=== PATIENT | male | born 1945 | race Caucasian/White ===

== ENCOUNTER 2020-07-24 06:11 | Observation (INO) ==
--- NOTE | 2020-07-13 16:48 | PAT Medication Instructions ---
Medication Instructions Date of Service July 13, 2020 Home Medications oxybutynin chloride 5 mg tablet 5 mg PO DAILY PRN antiarthritic combination no.2 [glucosamine-chondroitin] 900 mg PO QPM ascorbic acid (vitamin C) 1 g PO QPM cetirizine [Zyrtec] 10 mg PO QAM multivitamin 1 tab PO QPM omega-3 fatty acids [Fish Oil Concentrate] 1,000 mg PO QPM selenium 200 mcg PO QPM simvastatin 20 mg PO QAM vitamin E 600 unit PO QPM STOP taking 2 weeks before surgery If surgery is within 2 weeks, stop taking as soon as possible. antiarthritic combination no.2 [glucosamine-chondroitin] 900 mg PO QPM omega-3 fatty acids [Fish Oil Concentrate] 1,000 mg PO QPM selenium 200 mcg PO QPM vitamin E 600 unit PO QPM DO NOT take the morning of surgery oxybutynin chloride 5 mg tablet 5 mg PO DAILY PRN cetirizine [Zyrtec] 10 mg PO QAM Take evening before surgery multivitamin 1 tab PO QPM Other Notes If you have any questions please call us at [phone] or [phone] or [phone] or [phone]
--- NOTE | 2020-07-14 11:13 | Anesthesiology Consultation ---
Date of Service July 14, 2020 Assessment & Plan (1) Encounter for pre-operative examination: COVID Status: As of 07/14 assessment, patient denies travel to endemic area, known exposure/sick contacts, or symptoms of COVID19. Patient instructed that they and their household members must follow strict social distancing guidelines, wear a mask in public and avoid travel/events/gatherings for 14 days prior to surgery. Preoperative COVID19 testing to be completed prior to surgery per surgeon's arrangements. Patient made aware to self-isolate as much as possible between COVID testing and surgery. Chart Review Chart Review: Acceptable Risk for Surgery and Patient seen in Pre Admission Testing Teaching & Discussion Instructed NPO after midnight before surgery, except medications with 15 cc of water. Medication instructions provided according to the PAT guidelines. History Surgery Operation Date: 07/24/20 08:35 Proposed Procedures p Transurethral Resection Prostate - Tony Spring DO s Cystoscopy, Possible Retrograde Pyelogram and Possible Stent Placement Left - Tony Spring DO Height/Weight Height: 5 ft 11 in Weight: 84.9 kg Allergies Allergy/AdvReac Type Severity Reaction Status Date / Time No Known Allergies Allergy Mild Verified 07/05/20 08:01 Medications Home Medications Medication Instructions Recorded Confirmed Last Taken oxybutynin chloride 5 mg tablet 5 mg PO DAILY PRN tab 01/17/20 07/05/20 Unknown antiarthritic combination no.2 900 mg PO QPM 07/05/20 07/05/20 Unknown [glucosamine-chondroitin] ascorbic acid (vitamin C) 1 g PO QPM 07/05/20 07/05/20 Unknown cetirizine [Zyrtec] 10 mg PO QAM 07/05/20 07/05/20 Unknown multivitamin 1 tab PO QPM 07/05/20 07/05/20 Unknown omega-3 fatty acids [Fish Oil 1,000 mg PO QPM 07/05/20 07/05/20 Unknown Concentrate] selenium 200 mcg PO QPM 07/05/20 07/05/20 Unknown simvastatin 20 mg PO QAM 07/05/20 07/05/20 Unknown vitamin E 600 unit PO QPM 07/05/20 07/05/20 Unknown Past Medical History Medical History Bilateral nephrolithiasis incidental findings on imaging. BPH (benign prostatic hyperplasia) Complex renal cyst monitoring Hyperlipidemia Osteoarthritis Exercise / Class Metabolic Activity II 4-5 Yardwork/Stairs/Walk up hill Past Family History Family History Mother Bowel cancer Brother Throat cancer Bowel cancer Father Lung cancer Sister Lung cancer Other No family history of adverse response to anesthesia Past Surgical History Surgical History H/O foot surgery "toe surgery" H/O removal of cyst fatty cyst -- removal from the head History of colonoscopy History of tonsillectomy Past Anesthesia History No Hx of Anesthesia Complications and No Family Hx of Anesthesia Complications History of PONV No Hx of PONV and No Hx of Motion Sickness Social History Smoking Status: Never smoker Do You Dip or Chew Tobacco: No Hx Alcohol Use: Yes Alcohol type: wine alcohol intake frequency: a few times a week Hx Substance Use: No substance use type: does not use Review of Systems Pt denies any recent chest pain, shortness of breath, palpitations, cough, fever, URI, or uncontrolled acid reflux. +mild allergies (runny nose) when mowing grass Physical Exam Vital Signs BP: 122/77 P: 56bpm SPO2: 97% RA T: 97.8 F R: 16 ENMT Mouth: + dental bridge (L upper side) and + chipped teeth (broken tooth upper R side); no loose teeth Thyromental Distance: > or= 3.5 Finger Breadths Mallampati Class: II Neck normal visual inspection; neck extension not limited Respiratory normal respiratory effort, lungs clear to auscultation Cardiovascular RRR, no murmur, no edema Distant heart sounds Testing Laboratory Results 07/14/20 11:30 07/14/20 11:30 Urine Color Yellow 07/14/20 10:52 Urine Appearance Clear (Clear) 07/14/20 10:52 Urine pH 6.5 (4.5-7.5) 07/14/20 10:52 Ur Specific [place] 1.011 (1.000-1.030) 07/14/20 10:52 Urine Protein Negative (Negative) 07/14/20 10:52 Urine Glucose (UA) Negative (Negative) 07/14/20 10:52 Urine Ketones Trace (Negative) H 07/14/20 10:52 Urine Nitrite Negative (Negative) 07/14/20 10:52 Ur Leukocyte Esterase Negative (Negative) 07/14/20 10:52 07/14/20 10:52 Urine Culture - Final Urine,Clean Catch Alpha strep. not enterococcus Electrocardiogram Date: 07/14/20 Findings: + SB @ (51bpm) and + no change from (2005) Chest X-Ray Date: 07/14/20 Findings: + NAD
--- NOTE | 2020-07-14 12:19 | XRay Report ---
XR chest Pre-admission PA/Lat HISTORY: 75 years-old Male pat follow-up study in a patient with hematuria and nephrolithiasis COMPARISON: CT abdomen and pelvis 06/29/2020 TECHNIQUE: PA and lateral views of the chest FINDINGS: Nipple shadows project over the lung bases. The cardiomediastinal and hilar silhouettes are within no rmal limits. No pneumothorax, pleural effusion, airspace consolidation or overt pulmonary edema. Bone s of the chest appear grossly intact. IMPRESSION: No acute process. ACT 112: Negative or not required by law. The above report was generated using voice recognition software. It may contain grammatical, syntax o r spelling errors. Electronically signed by: Chon Vazquez M.D. 07/14/2020 12:17 PM
[2020-07-14 12:22] LABS: Basophils % (auto) 1.9 %; Eosinophils # (auto) 0.11 K/uL (0-0.5); Eosinophils % (auto) 2.1 %; Hematocrit (blood only) 46.8 % (42-52); Hemoglobin 15.6 g/dL (14.0-18.0); Immature Granulocytes # (auto) 0.01 K/uL (0.00-0.02); Immature Granulocytes % (auto) 0.2 %; Lymphocytes % (auto) 34.5 %; Mean Corpuscular Hemoglobin 30.5 pg (25-34); Mean Corpuscular Hgb Conc 33.3 g/dL (32-36); Mean Corpuscular Volume 91.4 fL (80-100); Mean Platelet Volume 9.1 fL (7.4-10.4); Monocytes # (auto) 0.69 K/uL (0.11-0.59); Monocytes % (auto) 13.2 %; Neutrophils % (auto) 48.1 %; Platelet Count 232 K/uL (130-400); RDW Coefficient of Variation 13.1 % (11.5-14.5); RDW Standard Deviation 44.2 fL (36.4-46.3); Red Blood Count 5.12 M/uL (4.7-6.1); White Blood Count 5.21 K/uL (4.8-10.8)
[2020-07-14 12:22] LABS: Appearance Urine Clear (Clear); Bilirubin Urine Negative (Negative); Blood Urine Negative (Negative); Color Urine Yellow; Glucose Urine UA Negative (Negative); Ketones Urine Trace (Negative); Leukocyte Esterase Urine Negative (Negative); Nitrite Urine Negative (Negative); Protein Urine Negative (Negative); Specific Gravity Urine 1.011 (1.000-1.030); Urobilinogen Urine Negative (Negative); pH Urine 6.5 (4.5-7.5)
[2020-07-14 12:38] LABS: BUN Creatinine Ratio 22.9 (10-20); Calcium 9.6 mg/dl (8.5-10.1); Creatinine Clr Calc Pharmacy 85.5 ml/min; Est GFR (African American) 101.7 ml/min; Est GFR (Non-African American) 87.7 ml/min; Potassium 3.9 mmol/L (3.5-5.1)
--- NOTE | 2020-07-15 06:22 | Electrocardiogram Report ---
Test Reason : Blood Pressure : / mmHG Vent. Rate : 051 BPM Atrial Rate : 051 BPM P-R Int : 178 ms QRS Dur : 116 ms QT Int : 478 ms P-R-T Axes : 063 -24 035 degrees QTc Int : 440 ms Sinus bradycardia Otherwise normal ECG When compared with ECG of 02-DEC-2005 09:52, No significant change was found Confirmed by Wellington Ayala ([id number]) on 07/15/2020 6:22:45 AM Referred By: Tony Spring Confirmed By:Wellington Ayala
[~2020-07-24 06:11] MED LIST: CIPROFLOXACIN / D5W 400 MG/200 ML BAG IV SCH; LR 15ML/HR IV SCH
--- NOTE | 2020-07-24 07:05 | History & Physical Report ---
Date of Service July 24, 2020 Assessment & Plan (1) BPH w urinary obs/LUTS: Risks and benefits discussed at length for procedure. These include bleeding, infection, injury to surrounding tissues or organs, and risks associated with anesthesia. Patient states understanding and agrees to proceed. Will sign consent and proceed. Plan for TURP and bilateral retrograde pyelogram and possible stent. (2) Bilateral nephrolithiasis: (3) Complex renal cyst: (4) Lower urinary tract symptoms (LUTS): History of Present Illness Primary Care Provider: Mina Menchaca DO Patient here for procedure. No changes in medical issues. No major changes in urinary issues. Continued issues and concerns. No change in pain or discomfort. No severe fevers or chills. No chest pain or shortness of breath. Risks and benefits discussed at length for procedure. These include bleeding, infection, injury to surrounding tissues or organs, and risks associated with anesthesia. Patient and/or family states understanding and agrees to proceed. Consent and supporting information completed. Allergies Allergy/AdvReac Type Severity Reaction Status Date / Time No Known Allergies Allergy Mild Verified 07/24/20 06:57 Home Medications Medication Instructions Recorded Confirmed Type oxybutynin chloride 5 mg tablet 5 mg PO DAILY PRN tab 01/17/20 07/24/20 History antiarthritic combination no.2 900 mg PO QPM 07/05/20 07/24/20 History [glucosamine-chondroitin] ascorbic acid (vitamin C) 1 g PO QPM 07/05/20 07/24/20 History cetirizine [Zyrtec] 10 mg PO QAM 07/05/20 07/24/20 History multivitamin 1 tab PO QPM 07/05/20 07/24/20 History omega-3 fatty acids [Fish Oil 1,000 mg PO QPM 07/05/20 07/24/20 History Concentrate] selenium 200 mcg PO QPM 07/05/20 07/24/20 History simvastatin 20 mg PO QAM 07/05/20 07/24/20 History vitamin E 600 unit PO QPM 07/05/20 07/24/20 History cephalexin 500 mg capsule 500 mg PO BID 5 Days #10 cap 07/17/20 07/24/20 Rx Past Med/Surg History Medical History Bilateral nephrolithiasis incidental findings on imaging. BPH (benign prostatic hyperplasia) Complex renal cyst monitoring Hyperlipidemia Osteoarthritis Surgical History H/O foot surgery "toe surgery" H/O removal of cyst fatty cyst -- removal from the head History of colonoscopy History of tonsillectomy Family History Mother Bowel cancer Brother Throat cancer Bowel cancer Father Lung cancer Sister Lung cancer Other No family history of adverse response to anesthesia Social History Smoking Status: Never smoker Second Hand Exposure: No; Do You Dip or Chew Tobacco: No; Tobacco Cessation Education Requested by Patient: No Hx Alcohol Use: Yes Alcohol type: wine Alcohol Intake Frequency: 4 or More x per/Week Alcohol Intake Frequency Comment: wine with daily at dinnertime Hx Substance Use: No Preferred Language: Kinyarwanda Communication Ability: Effective Visual Impairment: Diminished Hearing Ability: Use of Hearing Aid 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 Beliefs That Will Affect Care: None marital status: Single Current Living Situation: Alone current occupational status: retired Other Information That Helps Us Care for You: No Feels Safe at Home: Yes Safety Concerns: Feels Safe At This Time Childhood Exposure to Second-Hand Smoke: Yes Diet Comment: small portions and meals only 2 times daily caffeine: Yes Dental Care, Regularly: Yes Physical Activity Frequency: 3-4 Times per Week 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 No Acute illness. . HEENT: Inspection normal. Normal inspection of face. Normal inspection of neck. Psychologic: Normal affect/No change in mentation. Respiratory: No use of accessory muscles. No respiratory changes or exacerbation or changes with tachypnea or dyspnea. Cardiovascular: No tachycardia Skin: [employer] and Dry. No new rashes or visible lesions. Abdomen: Normal inspection. No guarding. PG Care Time/CCT Total # of Minutes Spent Total Time Spent with Patient: Total time spent is greater than 50% in coordination of care (as documented) at patient's floor/unit and/or counseling patient: Coding Level of Care Code 36076 Initial Inpt Care Lvl 3 Diagnoses BPH w urinary obs/LUTS N40.1; N13.8 Bilateral nephrolithiasis N20.0 Complex renal cyst N28.1 Lower urinary tract symptoms (LUTS) R39.9
[2020-07-24] MEDS ORDERED: LIDOCAINE 2% 2 ML VIAL/AMP(20MG/ML) INFIL ONE (07:36)
[2020-07-24] MEDS ORDERED: fentaNYL citrate 100 MCG/2 ML VIAL ONE (07:36)
[2020-07-24] MEDS ORDERED: PROPOFOL IV EMULSION 10 MG/ML 20 ML VIAL IV ONE (07:36)
[2020-07-24] MEDS ORDERED: KETOROLAC 30 MG/ML VIAL ONE (07:36)
[2020-07-24] MEDS ORDERED: ONDANSETRON INJ 2 MG/ML 2 ML VIAL ONE (07:36)
[2020-07-24] MEDS ORDERED: ePHEDrine sulfate 50 MG/ML AMP IV PRN (08:18)
[2020-07-24] MEDS ORDERED: ATROPINE SULFATE 0.1 MG/ML 10ML SYR IV PRN (08:18)
[2020-07-24] MEDS ORDERED: NALOXONE HCL 0.4 MG/1 ML VIAL/CARP IV PRN (08:18)
[2020-07-24] MEDS ORDERED: ONDANSETRON INJ 2 MG/ML 2 ML VIAL IV PRN ×2 (08:18→12:45)
[2020-07-24] MEDS ORDERED: FLUMAZENIL 0.1 MG/1 ML 10 ML VIAL IV PRN (08:18)
[2020-07-24] MEDS ORDERED: LABETALOL HCL IV 5 MG/ML 20ML IV PRN (08:18)
[2020-07-24] MEDS ORDERED: PROMETHAZINE HCL 12.5 MG in SODIUM CHLORIDE 0.9% 50 ML IV PRN (08:18)
[2020-07-24] MEDS ORDERED: fentaNYL citrate 100 MCG/2 ML VIAL IV PRN (08:18)
[2020-07-24] MEDS ORDERED: DIATRIZOATE MEGLUMINE 30% 100ML VIAL INSTIL PRN (08:59)
[2020-07-24] MEDS ORDERED: SODIUM CHLORIDE 0.9% INJ 10 ML VIAL ONE (09:02)
[2020-07-24] MEDS ORDERED: ePHEDrine sulfate 50 MG/ML AMP ONE (09:02)
--- NOTE | 2020-07-24 09:29 | Fluoroscopy Report ---
FL retrograde includes kub CLINICAL HISTORY: LEFT RETROGRADE AND STENT INSERTION COMPARISON STUDY: None. FLUOROSCOPY TIME: 1 minute and 16 seconds. FINDINGS: 4 fluoroscopic spot images of the abdomen demonstrate bilateral retrograde opacification of the renal collecting systems with placement of a left ureteral stent. The left ureteral stent appear s in good position. IMPRESSION: Fluoroscopy provided for left ureteral stent placement which appears in good position. ACT 112: Negative or not required by law. Electronically signed by: Ernie Gardner M.D. 07/24/2020 9:28 AM
[2020-07-24] MEDS ORDERED: BELLADONNA/OPIUM SUPP 60 MG SUPP PR ONE ×2 (10:51→10:53)
--- NOTE | 2020-07-24 11:17 | Operative Report ---
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 (Not Applicable) - Tony Spring DO s Cystoscopy, Bilateral Retrograde Pyelogram and Ureteral Stent Placement Left x2, Left Ureteroscop with left Ureteral Dilation - Tony Spring DO Surgeon Tony Spring, II, DO [employer] Home Mechan[employer] None Estimated Blood Loss 20 Findings Consistent with Post-Op Diagnosis Large Prostate with obstruction. 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 Significant stricture of the distal medial left UO. Mild bulbar urethral st ricture dilated. Specimens Prostate adenoma. Drains [address] Way 24Fr Catheter 6 x 26 Stent x 2 on Left Anesthesia Type General Complications none Disposition Disposition: Recovery Room Indications Patient with obstruction due to prostate enlargement. Risks and benefits discussed at length. Description of Procedure Patient was consented and brought back to the operating room. Patient was placed under anesthesia in the supine position and moved to the dorsal lithotomy position. Patient was prepped and draped in the regular sterile fashion. A time out was completed. A 30degree Cystoscope was placed into the bladder and the entire bladder was examined. A bulbar urethral stricture had to be dilated. The UO's were identified as well as the bladder neck, trigone, dome, and the other important landmarks. The prostatic urethra and large lobes/adenoma was assessed and the veru and bladder neck identified and area/size was assessed. The UO's were identified. The UO was cannulized with a catheter and a retrograde pyelogram was completed. Initially 2 ureters have been discovered one on the left one on the left. With further manipulation a duplicated system was found bilaterally. A wire was then placed on the lateral ureter on the left and a 6 Turkish double-J stent was placed and confirmed with fluoroscopy. Multiple attempts to pass a wire on the medial left UO would not move forward. A narrowed area have been appreciated at the very distal portion. The Rigid ureteroscope was taken into the ureter. The stricture was identified immediately in the UO. This was dilated and a wire was then able to be passed. The scope was slowly removed with the wire left in place. Contrast was placed through the scope for a pyelogram to assist in stent placement. No other obstructions or other areas of concern were noted. With the wire in place, a 6 Fr Double J stent was placed. It was confirmed with fluoroscopy. [address] on the left. The retrograde pyelogram on the right showed no major abnormality. The resection scope was placed and the fine bipolar loop was selected. Starting at the 5 and 7 o'clock positions, a channel was created from bladder neck to the veru. With the channel created the resection was then taken from the 11:00 and 1 o'clock position sweeping down towards the channel. A large amount of prostatic tissue had to be resected. In the anterior portion a large amount of prostate was appreciated at the bladder neck. A considerable amount of prostatic varicosities were noted and at the bladder neck multiple fulgurations need to be completed to control bleeding and issues from these large prostatic varicosities. A large resection was completed and a good channel had been created. Additional tissue was resected especially closer to the 12 o'clock position at the bladder neck. Additional tissue was also taken just proximal to the Desiree. All bleeding had been controlled. The Specimen was removed and sent for analysis. The resection bed and any bleeding areas were fulgurated/cauterized and the entire area inspected. All b leeding was controlled. The bladder was inspected a final time. The bladder was emptied and irrigated. All specimen and debris was removed. The scope was removed with the bladder partially full. A catheter was placed and balloon elevated. This was easily irrigated. A belladonna and opium suppository was placed. The patient was cleaned, aroused from anesthesia, and transferred to the pacu in stable condition having tolerated the procedure well with no complications. I was present and participated in all aspects of the procedure. The patient will be monitored in the PACU until transferred. I attest to the content of the Intraoperative Record and any orders documented therein. Any exceptions are noted below.
--- NOTE | 2020-07-24 12:16 | Anesthesiology Progress Note ---
Date of Service July 24, 2020 Anesthesia Post Procedure Vital Signs Vital Signs: Temp Pulse Pulse Resp BP BP Pulse Ox 07/24/20 12:00 59 L 16 125/67 94 07/24/20 11:45 36.3 C L 60 15 122/79 94 07/24/20 11:35 59 L 16 130/72 95 07/24/20 11:25 63 16 127/76 94 07/24/20 11:16 36.4 C L 80 16 134/79 94 07/24/20 07:04 36.6 C 68 20 146/86 H 20 L Transfer of Care Handoff Completed per policy Notes Mental Status: alert / awake / arousable Patient Amnestic to Procedure: Yes Nausea / Vomiting: adequately controlled Pain: adequately controlled Airway Patency, RR, SpO2: stable & adequate BP & HR: stable & adequate Hydration State: stable & adequate Anesthetic Complications: no major complications apparent
[2020-07-24] MEDS ORDERED: BELLADONNA/OPIUM SUPP 60 MG SUPP PR PRN (12:45)
[2020-07-24] MEDS ORDERED: oxyCODONE/ACETAMINOPHEN 5mg/325mg TAB PO PRN (12:45)
[2020-07-24] MEDS ORDERED: MoRPHine SULFATE 2 MG/ML CARP IV PRN (12:45)
[2020-07-24] MEDS ORDERED: PHENAZOPYRIDINE HCL 200 MG TAB PO PRN (12:45)
[2020-07-24] MEDS ORDERED: OXYBUTYNIN CHLORIDE 5 MG TAB PO PRN (12:45)
[2020-07-24 13:11] LABS: Basophils # (auto) 0.04 K/uL (0-0.2); Basophils % (auto) 0.6 %; Eosinophils # (auto) 0.04 K/uL (0-0.5); Eosinophils % (auto) 0.6 %; Hematocrit (blood only) 40.6 % (42-52); Hemoglobin 13.7 g/dL (14.0-18.0); Immature Granulocytes # (auto) 0.01 K/uL (0.00-0.02); Immature Granulocytes % (auto) 0.1 %; Lymphocytes # (auto) 1.39 K/uL (1.2-3.4); Lymphocytes % (auto) 19.7 %; Mean Corpuscular Hemoglobin 30.8 pg (25-34); Mean Corpuscular Hgb Conc 33.7 g/dL (32-36); Mean Corpuscular Volume 91.2 fL (80-100); Mean Platelet Volume 8.9 fL (7.4-10.4); Monocytes # (auto) 0.46 K/uL (0.11-0.59); Monocytes % (auto) 6.5 %; Neutrophils % (auto) 72.5 %; Platelet Count 192 K/uL (130-400); RDW Standard Deviation 43.3 fL (36.4-46.3); Red Blood Count 4.45 M/uL (4.7-6.1); White Blood Count 7.04 K/uL (4.8-10.8)
[2020-07-24 13:28] LABS: BUN Creatinine Ratio 25.2 (10-20); Calcium 8.6 mg/dl (8.5-10.1); Creatinine Clr Calc Pharmacy 80.5 ml/min; Est GFR (African American) 99.2 ml/min; Est GFR (Non-African American) 85.6 ml/min; Potassium 3.6 mmol/L (3.5-5.1)
[2020-07-24] MEDS: DOCUSATE SODIUM 100 MG CAP PO SCH ×2 (14:14→20:28)
[2020-07-24] MEDS: SIMVASTATIN 20 MG TAB PO SCH (14:14)
[2020-07-24] MEDS: SODIUM CHLORIDE 0.9% 1000ML 1,000 ML IV SCH (14:14)
[2020-07-24] MEDS: CETIRIZINE HCL 10 MG TABLET PO SCH (14:14)
[2020-07-24] MEDS: ceFAZolin 2000MG 2,000 MG/15 ML SYR IV SCH (16:32)
[2020-07-25] MEDS: ceFAZolin 2000MG 2,000 MG/15 ML SYR IV SCH ×2 (00:23→08:47)
[2020-07-25] MEDS: SODIUM CHLORIDE 0.9% 1000ML 1,000 ML IV SCH (02:23)
--- NOTE | 2020-07-25 07:51 | Urology Progress Note ---
Date of Service July 25, 2020 Assessment & Plan (1) BPH w urinary obs/LUTS: (2) Lower urinary tract symptoms (LUTS): (3) Bilateral nephrolithiasis: 75yo M admitted s/p TURP and Cystoscopy, Ureteroscopy, Left stent placement - Postop day #1 status post Transurethral Resection Prostate with urethral dilation and Cystoscopy, Bilateral Retrograde Pyelogram, Ureteral Stent Placement Left x2, and Left Ureteroscopy with left Ureteral Dilation with Dr. Spring - Patient doing well post procedure - Afebrile, VSS. - Will check a CBC and BMP this morning. - Jerome catheter intact and draining with hematuria, CBI clamped this morning - Continue to monitor - Will plan to reassess this afternoon - Likely home later today if he continues to progress - Pt reassessed this afternoon - Patient feeling well, progressing as expected. - Tolerating diet, no nausea or vomiting - Jerome catheter draining pink tinged urine - Minimal pain - Expected clinical course reviewed with patient, he verbalized understanding. All questions answered. - Will arrange postoperative follow-up appointments - Stable for discharge, home with jerome catheter Admission and Anticipated Discharge Date Admission Date: July 24, 2020 Subjective Pt examined at bedside this AM. Awake, resting in bed on arrival. Denies any pain or discomfort at this time. Jerome catheter intact, draining clear urine with CBI running Denies fevers or chills No nausea or vomiting Tolerating PO diet Eager to go home today Review of Systems Constitutional: as per Subjective / HPI Gastrointestinal: as per Subjective / HPI Genitourinary: + as per Subjective / HPI Physical Exam Constitutional: well developed and well nourished; no acute distress and not ill appearing Respiratory: normal respiratory effort and able to speak in complete sentences; no labored breathing and no audible wheezes Gastrointestinal (Abdomen): Percussion/Palpation: abdomen soft; abdomen nontender and no guarding Neurologic: awake Psychiatric: A+Ox3, euthymic affect Genitourinary: Jerome catheter intact, draining with hematuria Results & Data ([facility]) Vital Signs (Past 12 Hours) Vital Signs Temp Pulse Resp BP Pulse Ox 07/25/20 03:44 37.4 C 77 16 141/79 H 97 07/24/20 22:47 36.7 C 73 16 133/77 98 PG Care Time/CCT Total # of Minutes Spent Total Time Spent with Patient: Total time spent is greater than 50% in coordination of care (as documented) at patient's floor/unit and/or counseling patient: Coding Level of Care Code 77835 Subseq Hosp Care Lvl 2 Diagnoses BPH w urinary obs/LUTS N40.1; N13.8 Lower urinary tract symptoms (LUTS) R39.9 Bilateral nephrolithiasis N20.0
[2020-07-25] MEDS: SIMVASTATIN 20 MG TAB PO SCH (08:47)
[2020-07-25] MEDS: DOCUSATE SODIUM 100 MG CAP PO SCH (08:47)
[2020-07-25] MEDS: CETIRIZINE HCL 10 MG TABLET PO SCH (08:47)
[2020-07-25 09:45] LABS: Basophils # (auto) 0.05 K/uL (0-0.2); Basophils % (auto) 0.6 %; Eosinophils # (auto) 0.09 K/uL (0-0.5); Hematocrit (blood only) 37.5 % (42-52); Hemoglobin 12.7 g/dL (14.0-18.0); Immature Granulocytes # (auto) 0.01 K/uL (0.00-0.02); Immature Granulocytes % (auto) 0.1 %; Lymphocytes # (auto) 1.67 K/uL (1.2-3.4); Lymphocytes % (auto) 18.7 %; Mean Corpuscular Hemoglobin 30.6 pg (25-34); Mean Corpuscular Hgb Conc 33.9 g/dL (32-36); Mean Corpuscular Volume 90.4 fL (80-100); Mean Platelet Volume 8.9 fL (7.4-10.4); Monocytes % (auto) 11.2 %; Neutrophils % (auto) 68.4 %; Platelet Count 164 K/uL (130-400); RDW Coefficient of Variation 13.3 % (11.5-14.5); RDW Standard Deviation 43.6 fL (36.4-46.3); Red Blood Count 4.15 M/uL (4.7-6.1); White Blood Count 8.92 K/uL (4.8-10.8)
[2020-07-25 10:08] LABS: BUN Creatinine Ratio 16.6 (10-20); Calcium 7.8 mg/dl (8.5-10.1); Creatinine Clr Calc Pharmacy 86.5 ml/min; Est GFR (African American) 102.2 ml/min; Est GFR (Non-African American) 88.2 ml/min; Potassium 3.9 mmol/L (3.5-5.1)
--- NOTE | 2020-07-26 09:25 | Discharge Summary ---
Date of Service July 26, 2020 Admission HPI Per Admitting Provider Patient here for procedure. No changes in medical issues. No major changes in urinary issues. Continued issues and concerns. No change in pain or discomfort. No severe fevers or chills. No chest pain or shortness of breath. Risks and benefits discussed at length for procedure. These include bleeding, infection, injury to surrounding tissues or organs, and risks associated with anesthesia. Patient and/or family states understanding and agrees to proceed. Consent and supporting information completed. Admission Exam Per Admitting Provider See H&P Principal Diagnosis BPH with obstruction Discharge Exam General: Alert in no acute distress. HEENT: Normocephalic Atraumatic. Inspection normal. Psychologic: Normal affect. Skin: [place] and Dry. No rashes or visible lesions. Abdomen: Soft Non-distended. No rebound or guarding. Discharge Data Allergies Allergy/AdvReac Type Severity Reaction Status Date / Time No Known Allergies Allergy Mild Verified 07/24/20 06:57 Procedures Performed Operation Date: 07/24/20 08:35 Actual Procedures p Transurethral Resection Prostate(Not Applicable) - Tony Spring DO s and Ureteral Stent Placement Left x2, (Left) - Tony Spring DO s Cystoscopy, Bilateral Retrograde Pyelogram, Ureteroscopy, Ureteral Dilation and Urethral Dilation (Left) - Tony Spring DO Ordered Studies 07/24/20 08:35 FL retrograde includes kub Routine Hospital Course (1) BPH w urinary obs/LUTS: Risks and benefits discussed at length for procedure. These include bleeding, infection, injury to surrounding tissues or organs, and risks associated with anesthesia. Patient states understanding and agrees to proceed. Will sign consent and pro ceed. Plan for TURP and bilateral retrograde pyelogram and possible stent. (2) Lower urinary tract symptoms (LUTS): (3) Bilateral nephrolithiasis: 75yo M admitted s/p TURP and Cystoscopy, Ureteroscopy, Left stent placement - Postop day #1 status post Transurethral Resection Prostate with urethral dilation and Cystoscopy, Bilateral Retrograde Pyelogram, Ureteral Stent Placement Left x2, and Left Ureteroscopy with left Ureteral Dilation with Dr. Spring - Patient doing well post procedure - Afebrile, VSS. - Will check a CBC and BMP this morning. - Jerome catheter intact and draining with hematuria, CBI clamped this morning - Continue to monitor - Will plan to reassess this afternoon - Likely home later today if he continues to progress - Pt reassessed this afternoon - Patient feeling well, progressing as expected. - Tolerating diet, no nausea or vomiting - Jerome catheter draining pink tinged urine - Minimal pain - Expected clinical course reviewed with patient, he verbalized understanding. All questions answered. - Will arrange postoperative follow-up appointments - Stable for discharge, home with jerome catheter Total Time Total Time Spent Total Time Spent (In Minutes): 10 minutes Total Time Includes: Examination of the Patient, Discharge Planning, Medication Reconciliation and Communication With Other Providers Discharge Plan Discharge Items Patient Disposition: Home - Self-Care Reason For Visit: Bilateral Nephrolithiasis, BPH with Urinary Obstru Discharge Diagnosis: Bilateral Nephrolithiasis, BPH with Urinary Obstruction Activity: Per Instructions section Lifting: No more than 25 pounds Bathing Comment: No tub baths or soaks. OK to shower. Sexual Activity: Wait until after follow-up appointment Exercise/Sports: Wait until after follow-up appointment Driving/Machine Use: Do not drive while taking prescription pain medications. Non-emergency contact: Surgeon and Urologist Call non-emergency contact if: your pain is not controlled, you have a fever and your temperature is above 101 Follow-up/Referrals: Mina Menchaca, [Primary Care Provider] - Diet: Regular Addtl Attending Provider Instructions: Please take all medications as prescribed and keep all follow-ups as scheduled. Please call our office at [phone] with any questions, concerns or need to reschedule appointments for any reason. We are happy to assist you. The urology office will call you with your follow-up appointment time and date. Tips for your recovery at home: Dont be alarmed by brownish or reddish blood or clots in your urine. This is a result of the procedure. This may occur off and on for weeks to months after the procedure but should continue to improve. Drink plenty of fluids during the day (enough to keep your urine very light colored). This will help keep a healthy flow of urine. Do not lift >25 lbs until your followup Avoid constipation. Please use a stool softener (Colace) for the first two weeks after your procedure Be sure to finish the antibiotics as prescribed. If you go home with a catheter, please wash tubing where it enters your body twice daily with mild soap (Dove or Dial). Once your catheter is removed, expect some blood in your urine and some burning when you urinate. You should have an appointment to have this removed, if you do not please call our office to arrange. When to call [facility] at [phone]: Your urine contains heavy blood clots You are constantly leaking urine Fever of 101F or higher, chills, nausea, or vomiting Your pain is not relieved with medication Pending Studies at Discharge: Yes Stand-Alone Forms: [facility], Smoking Cessation Medications and DC Order Prescriptions: New docusate sodium [Colace] 100 mg capsule 100 mg PO BID Qty: 60 RF: 0 oxycodone-acetaminophen [Percocet] 5-325 mg tablet 1 tab PO Q8H PRN (Reason: pain) Qty: 7 RF: 0 cephalexin 500 mg capsule 500 mg PO BID 5 Days Qty: 10 RF: 0 Continued oxybutynin chloride 5 mg tablet 5 mg PO DAILY PRN (Reason: Urinary Retention) RF: 0 multivitamin Tablet 1 tab PO QPM RF: 0 ascorbic acid (vitamin C) 1,000 mg tablet 1 g PO QPM RF: 0 omega-3 fatty acids [Fish Oil Concentrate] 1,000 mg capsule 1,000 mg PO QPM RF: 0 cetirizine [Zyrtec] 10 mg tablet 10 mg PO QAM RF: 0 selenium 200 mcg tablet 200 mcg PO QPM RF: 0 simvastatin 20 mg tablet 20 mg PO QAM RF: 0 glucosamine-chondroitin 900 mg tablet 900 mg PO QPM RF: 0 vitamin E 600 unit capsule 600 unit PO QPM RF: 0 Discontinued cephalexin 500 mg capsule 500 mg PO BID 5 Days Qty: 10 RF: 0 Discharge Orders: Discharge Order (Routine); Ordered 07/25/20 Ordered By: Wanda Morrison/Other Patient Handouts: Discharge Instructions Caring for ... Admission Data Admit Date/Time: 07/24/20 11:15 Attending Provider: Tony Spring Admit Provider: Tony Spring Primary Care Provider: Mina Menchaca Other Interventions: Discharge Summary Assessment (RN) Last Done: 07/25/20 13:28 Coding Level of Care Code D/C Day Management <30 mins Diagnoses BPH w urinary obs/LUTS N40.1; N13.8 Lower urinary tract symptoms (LUTS) R39.9 Bilateral nephrolithiasis N20.0
== END 2020-07-25 14:35 | disposition home or self-care (01) | DRG 713 ==
LOC: ASU 06:11 → 3N 11:15 → INTOOBSV 11:15